=== PATIENT | male | born 1950 | race Caucasian/White ===

== ENCOUNTER → 2019-01-30 | Outpatient (CLI) | payer OTHER ==
[~2019-01-30] VITALS: Ht 180.3 cm; Wt 113.4 kg
[~2019-01-30] MED LIST: AEC81 PO; AMLO5TAB9 PO; ATOR10 PO; CLOP75TA14 PO; ENAL20TA PO; EZET10TA13 PO; METO25TA6 PO; NITR0.4T SL; PANT40TA25 PO; RANO500T2 PO; REGADENOSON 0.4 MG/5 ML PF SYG IVP SCH
== END | disposition home or self-care (01) ==
LOC: SHCH 08:31
PROVIDERS: ATTEND Internal Medicine Cardiovascular Disease
DX: I25.119 Atherosclerotic heart disease of native coronary artery with unspecified angina pectoris (principal)
CPT/HCPCS: 78452; 93017; 96374; A9500 ×2; J2785

== ENCOUNTER 2019-02-28 08:21 | Day surgery (SDC) | payer OTHER ==
[2019-02-26 09:36] VITALS: BP 124/83
[2019-02-26 09:42] LABS: BASOPHILS % (AUTO) 1.4 % (0.0-5.0); EOSINOPHILS % (AUTO) 5.8 % (0.0-8.0); HEMATOCRIT 38.6 % (42-54); LYMPHOCYTES % (AUTO) 22.1 % (21.0-51.0); MEAN CORPUSCULAR HEMOGLOBIN 26.9 pg (27.0-33.0); MEAN CORPUSCULAR HGB CONC 31.1 g/dL (32.0-36.0); MEAN CORPUSCULAR VOLUME 86.5 fL (79-99); MONOCYTES % (AUTO) 11.2 % (3.0-13.0); PLATELET COUNT (AUTO) 312 K/uL (130-400); RED BLOOD CELL COUNT(AUTO) 4.46 MIL/uL (4.50-6.20); RED CELL DISTRIBUTION WIDTH 15.9 % (11.0-15.5); WHITE BLOOD COUNT (AUTO) 6.5 K/uL (4.8-10.8)
[2019-02-26 09:51] LABS: CREATININE 0.8 mg/dL (0.5-1.5); POTASSIUM 4.5 mmol/L (3.5-5.1)
[2019-02-26 09:55] LABS: INR 1.05 (0.85-1.15); PARTIAL THROMBOPLASTIN TIME 27.9 SEC (26.3-35.5)
[2019-02-26 10:35] LABS: APPEARANCE,URINE Clear (CLEAR); BILIRUBIN,URINE Negative (NEGATIVE); COLOR,URINE Yellow (YELLOW); GLUCOSE, URINE (UA) Negative (NEGATIVE); KETONES,URINE Negative (NEGATIVE); LEUKOCYTE ESTERASE ,URINE Negative (NEGATIVE); NITRATE,URINE Negative (NEGATIVE); OCCULT BLOOD,URINE Negative (NEGATIVE); PROTEIN,URINE Negative (NEGATIVE)
[2019-02-28] VITALS (9 sets, daily range): BP systolic 116–144; BP diastolic 69–98
[~2019-02-28] VITALS: Ht 179.1 cm; Wt 111.1 kg
[~2019-02-28 08:21] MED LIST changes: +CETI10TA57 PO; +CITA-107 PO; -CLOP75TA14 PO; -EZET10TA13 PO; +FLUT16H NASAL; +ISOS30TA6 PO; -RANO500T2 PO; -REGADENOSON 0.4 MG/5 ML PF SYG IVP SCH; +TICA90TA PO; +TRAZ-185 PO
[2019-02-28] MEDS ORDERED: SODIUM CHLORIDE 0.9% 1000ML 1,000 ML IV ONE (09:02)
[2019-02-28] MEDS ORDERED: NITROGLYCERIN 5 MG/ML 10 ML VIAL IV ONE (14:42)
[2019-02-28] MEDS ORDERED: IOHEXOL 350 MG/ML 100ML INFUS..BTL IV ONE (14:42)
[2019-02-28] MEDS ORDERED: HEPARIN SODIUM 1000UNIT/ML 10ML VIAL ONE (14:42)
[2019-02-28] MEDS ORDERED: IOHEXOL-350 50ML VIAL IV ONE (14:43)
[2019-02-28] MEDS ORDERED: FENTANYL CITRATE PF 50 MCG/1 ML 2ML VIAL ONE (14:43)
[2019-02-28] MEDS ORDERED: MIDAZOLAM HCL 1 MG/ML 2ML VIAL ONE (14:43)
[2019-02-28] MEDS ORDERED: LIDOCAINE HCL 2% 20ML ONE (14:43)
--- NOTE | 2019-02-28 14:45 | NUR ---
procedure pt taken to laboratory supervisor for scheduled procedure. family at bedside
[2019-02-28] MEDS ORDERED: NICARDIPINE HCL 25 MG/10 ML ML IV ONE (15:08)
[2019-02-28] MEDS ORDERED: HYDRALAZINE HCL 20 MG/ML VIAL ONE (17:00)
[2019-02-28] MEDS ORDERED: NITROGLYCERIN 4.1 GM SPRAY TL ONE (17:28)
[2019-02-28] MEDS ORDERED: ONDANSETRON HCL 4 MG/2 ML VIAL ONE (18:06)
[2019-02-28] MEDS ORDERED: ONDANSETRON HCL 4 MG/2 ML VIAL IVP SCH (18:15)
[2019-02-28] MEDS ORDERED: ACETAMINOPHEN 325 MG TAB ONE (18:38)
[2019-02-28] MEDS ORDERED: ALBUTEROL SULFATE 0.083% 2.5 MG/3 ML INH IH ONE ×2 (19:33→19:45)
--- NOTE | 2019-02-28 21:30 | NUR ---
TR BAND TOTAL OF 1ML AIR REMOVED AIR AT : 1903 2ML 1918 2ML 1922 2ML 1937 2ML 1952 2ML TR BAND REMOVED 1999 , NO HEMATOMA OR ACTIVE BLEEDING TO RIGHT WRIST CATHETER SITE. PT STABLE, NO C/O PAIN TO SITE, NO DISTRESS. POST CARE INSTRUCTIONS GIVEN TO PT AND , BOTH VERBALIZED UNDERSTANDING, PT IV D/C, PT DRESSED WITH ASSISTANCE . PT TAKEN OUT IN WHEELCHAIR TO CAR, DRIVEN HOME BY SPOUSE.
== END 2019-02-28 20:35 | disposition home or self-care (01) ==
LOC: DAH 08:21
PROVIDERS: ATTEND Internal Medicine Cardiovascular Disease
DX: I25.118 Atherosclerotic heart disease of native coronary artery with other forms of angina pectoris (principal); I10 Essential (primary) hypertension; E78.00 Pure hypercholesterolemia, unspecified; Z72.89 Other problems related to lifestyle; Z79.899 Other long term (current) drug therapy; Z98.890 Other specified postprocedural states; Z87.891 Personal history of nicotine dependence; Z82.49 Family history of ischemic heart disease and other diseases of the circulatory system; Z85.828 Personal history of other malignant neoplasm of skin; Z79.01 Long term (current) use of anticoagulants
CPT/HCPCS: 36415 ×2; 71045; 80048; 81003; 85025; 85347; 85610; 85730; 93005; 93458; 94640; A4215; A4216; A4222; A4223 ×3; A4606; A4649; A4663; C1725; C1769 ×3; C1876; C1887; C1894 ×3; C9600; J0360; J1644 ×2; J2250; J2405; J3010; J3490 ×3; J7030; Q9965 ×2; Q9967 ×2; 99156; 99157

== ENCOUNTER → 2019-07-02 | Outpatient (CLI) | payer OTHER ==
[~2019-07-02] MED LIST changes: +REGADENOSON 0.4 MG/5 ML PF SYG IVP SCH
== END | disposition home or self-care (01) ==
LOC: SHCH 08:29
PROVIDERS: ATTEND Internal Medicine Cardiovascular Disease
DX: I21.19 ST elevation (STEMI) myocardial infarction involving other coronary artery of inferior wall (principal); R07.9 Chest pain, unspecified; I25.119 Atherosclerotic heart disease of native coronary artery with unspecified angina pectoris
CPT/HCPCS: 78452; 93017; 96374; A9500 ×2; J2785

== ENCOUNTER 2020-05-14 08:19 | Emergency (ER) | payer MEDICARE, OTHER ==
[~2020-05-14 08:19] MED LIST changes: +AMLO-257 PO; -AMLO5TAB9 PO; -ENAL20TA PO; +ENAL20TA18 PO; -ISOS30TA6 PO; +ISOS30TA92 PO; -PANT40TA25 PO; +PANT40TA54 PO; -REGADENOSON 0.4 MG/5 ML PF SYG IVP SCH
[2020-05-14] MEDS ORDERED: ASPIRIN 325 MG TABLET ONE (08:29)
[2020-05-14 08:30] LABS: BASOPHILS % (AUTO) 1.2 % (0.0-5.0); EOSINOPHILS % (AUTO) 5.3 % (0.0-8.0); HEMATOCRIT 40.6 % (42-54); MEAN CORPUSCULAR HEMOGLOBIN 27.3 pg (27.0-33.0); MEAN CORPUSCULAR HGB CONC 31.5 g/dL (32.0-36.0); MEAN CORPUSCULAR VOLUME 86.6 fL (79-99); MONOCYTES % (AUTO) 10.5 % (3.0-13.0); NEUTROPHILS % (AUTO) 56.2 % (40.0-77.0); PLATELET COUNT (AUTO) 267 K/uL (130-400); RED BLOOD CELL COUNT(AUTO) 4.69 MIL/uL (4.50-6.20); RED CELL DISTRIBUTION WIDTH 16.1 % (11.0-15.5); WHITE BLOOD COUNT (AUTO) 7.7 K/uL (4.8-10.8)
[2020-05-14 08:40] LABS: CREATININE 0.8 mg/dL (0.5-1.5); INR 1.07 (0.85-1.15); POTASSIUM 4.4 mmol/L (3.5-5.1); PROTHROMBIN TIME 11.6 SEC (9.6-11.6)
[2020-05-14 08:41] LABS: PARTIAL THROMBOPLASTIN TIME 26.3 SEC (26.3-35.5)
[2020-05-14 08:44] LABS: ALBUMIN 3.8 g/dL (3.5-5.0); BILIRUBIN,TOTAL 0.5 mg/dL (0.2-1.0); TOTAL PROTEIN, SERUM 7.6 g/dL (6.0-8.3)
[2020-05-14 08:50] LABS: B-TYPE NATRIURETIC PEPTIDE 68 pg/mL (0-100)
[2020-05-14] MEDS ORDERED: METOPROLOL TARTRATE 1 MG/ML 5ML VIAL IV ONE (08:55)
== END 2020-05-14 12:33 | disposition home or self-care (01) ==
LOC: EDH 08:19
DX: R07.89 Other chest pain (principal); R00.0 Tachycardia, unspecified; I10 Essential (primary) hypertension; E78.5 Hyperlipidemia, unspecified; I25.2 Old myocardial infarction
CPT/HCPCS: 36415; 71045; 80053; 82550; 83880; 84484 ×2; 85025; 85610; 85730; 93005 ×2; 96374; 99285; J3490

== ENCOUNTER 2020-07-24 08:05 | Day surgery (SDC) | payer OTHER ==
[2020-07-22 15:16] LABS: BASOPHILS % (AUTO) 1.2 % (0.0-5.0); EOSINOPHILS % (AUTO) 4.5 % (0.0-8.0); HEMATOCRIT 38.3 % (42-54); LYMPHOCYTES % (AUTO) 25.6 % (21.0-51.0); MEAN CORPUSCULAR HGB CONC 31.3 g/dL (32.0-36.0); MEAN CORPUSCULAR VOLUME 86.3 fL (79-99); MONOCYTES % (AUTO) 10.9 % (3.0-13.0); NEUTROPHILS % (AUTO) 57.5 % (40.0-77.0); PLATELET COUNT (AUTO) 267 K/uL (130-400); RED BLOOD CELL COUNT(AUTO) 4.44 MIL/uL (4.50-6.20); RED CELL DISTRIBUTION WIDTH 14.4 % (11.0-15.5); WHITE BLOOD COUNT (AUTO) 7.4 K/uL (4.8-10.8)
[2020-07-22 15:26] LABS: POTASSIUM 4.4 mmol/L (3.5-5.1)
[2020-07-22 15:30] LABS: INR 1.11 (0.85-1.15)
[2020-07-24] VITALS (9 sets, daily range): BP systolic 113–139; BP diastolic 78–99
[~2020-07-24] VITALS: Ht 182.9 cm; Wt 117.5 kg
[~2020-07-24 08:05] MED LIST changes: -AEC81 PO; +APIX5TAB PO; -CETI10TA57 PO; -FLUT16H NASAL; -ISOS30TA92 PO; +MULT-1203 PO; -TICA90TA PO; +TRAM50TA4 PO; -TRAZ-185 PO
[2020-07-24] MEDS ORDERED: SODIUM CHLORIDE 0.9% 1000ML 1,000 ML IV ONE (10:09)
[2020-07-24] MEDS ORDERED: MIDAZOLAM HCL 1 MG/ML 2ML VIAL ONE ×3 (14:45→15:33)
[2020-07-24] MEDS ORDERED: HEPARIN SODIUM 1000UNIT/ML 10ML VIAL ONE (14:45)
[2020-07-24] MEDS ORDERED: MEPERIDINE-PF 25 MG/ML SYG ONE ×3 (14:45→15:33)
[2020-07-24] MEDS ORDERED: LIDOCAINE HCL 400MG/20ML VIAL ONE (14:45)
== END 2020-07-24 20:00 | disposition home or self-care (01) ==
LOC: DAH 08:05
PROVIDERS: ATTEND Internal Medicine Cardiovascular Disease
DX: I48.3 Typical atrial flutter (principal); I25.10 Atherosclerotic heart disease of native coronary artery without angina pectoris; I45.10 Unspecified right bundle-branch block; F17.200 Nicotine dependence, unspecified, uncomplicated; I50.22 Chronic systolic (congestive) heart failure; Z79.01 Long term (current) use of anticoagulants; Z79.899 Other long term (current) drug therapy; Z98.890 Other specified postprocedural states; Z95.5 Presence of coronary angioplasty implant and graft; Z83.42 Family history of familial hypercholesterolemia
CPT/HCPCS: 36415; 80048; 85025; 85610; 85730; 93005; 93613; 93621; 93653; A4215; A4221; A4222; A4223 ×3; A4606; A4649 ×2; A4663; C1730; C1732; C1894 ×2; J1644 ×2; J2175 ×3; J2250 ×3; J3490; J7030; 99156; 99157

== ENCOUNTER 2021-11-27 07:04 | Day surgery (SDC) | payer OTHER ==
[2021-11-23 16:30] LABS: EOSINOPHILS % (AUTO) 4.8 % (0.0-8.0); HEMATOCRIT 44.7 % (42-54); LYMPHOCYTES % (AUTO) 30.5 % (21.0-51.0); MEAN CORPUSCULAR HEMOGLOBIN 31.4 pg (27.0-33.0); MEAN CORPUSCULAR HGB CONC 33.6 g/dL (32.0-36.0); MEAN CORPUSCULAR VOLUME 93.7 fL (79-99); MONOCYTES % (AUTO) 9.7 % (3.0-13.0); NEUTROPHILS % (AUTO) 53.7 % (40.0-77.0); PLATELET COUNT (AUTO) 203 K/uL (130-400); RED BLOOD CELL COUNT(AUTO) 4.77 MIL/uL (4.50-6.20); WHITE BLOOD COUNT (AUTO) 7.1 K/uL (4.8-10.8)
[2021-11-23 16:41] LABS: CREATININE 0.9 mg/dL (0.5-1.5); POTASSIUM 4.2 mmol/L (3.5-5.1)
[2021-11-23 16:45] LABS: PROTHROMBIN TIME 10.9 SEC (9.6-11.6)
[2021-11-23 16:46] LABS: PARTIAL THROMBOPLASTIN TIME 29.2 SEC (26.3-35.5)
[2021-11-23 16:52] LABS: B-TYPE NATRIURETIC PEPTIDE 53 pg/mL (0-100)
[2021-11-23 17:05] LABS: APPEARANCE,URINE CLEAR (CLEAR); BILIRUBIN,URINE NEGATIVE (NEGATIVE); COLOR,URINE LIGHT-YELLOW (YELLOW); GLUCOSE, URINE (UA) NEGATIVE (NEGATIVE); KETONES,URINE NEGATIVE (NEGATIVE); LEUKOCYTE ESTERASE ,URINE NEGATIVE Leu/uL (NEGATIVE); NITRATE,URINE NEGATIVE (NEGATIVE); OCCULT BLOOD,URINE NEGATIVE (NEGATIVE); PH,URINE 6.5 (5.0-8.0); PROTEIN,URINE NEGATIVE (NEGATIVE); UROBILINOGEN,URINE 0.2 mg/dL (0.2-1.0)
[2021-11-26 09:13] VITALS: BP 164/98
[~2021-11-27] VITALS: Ht 180.3 cm; Wt 120.2 kg
[2021-11-27] VITALS (9 sets, daily range): BP systolic 108–176; BP diastolic 64–103
[~2021-11-27 07:04] MED LIST changes: +AEC81 PO; -APIX5TAB PO; -ENAL20TA18 PO; +LEVO5TAB13 PO; +RANO500T6 PO; -TRAM50TA4 PO
[2021-11-27] MEDS ORDERED: 0.9%NACL 1000ML 1,000 ML IV ONE (07:29)
[2021-11-27] MEDS ORDERED: VERAPAMIL HCL 2.5 MG/ML VIAL ONE (09:02)
[2021-11-27] MEDS ORDERED: IOHEXOL 350 MG/ML 100ML INFUS..BTL IV ONE ×2 (09:02→10:13)
[2021-11-27] MEDS ORDERED: HEPARIN 10,000 UNIT/10ML (1,000 UNIT/ML) VIAL ONE (09:02)
[2021-11-27] MEDS ORDERED: NITROGLYCERIN 50MG VIAL ONE (09:02)
[2021-11-27] MEDS ORDERED: IOHEXOL-350 50ML VIAL IV ONE (09:03)
[2021-11-27] MEDS ORDERED: MIDAZOLAM HCL 1 MG/ML 2ML VIAL ONE (09:03)
[2021-11-27] MEDS ORDERED: FENTANYL CITRATE PF 50 MCG/1 ML 2ML VIAL ONE (09:03)
[2021-11-27] MEDS ORDERED: LIDOCAINE HCL MDV 0.5% 50ML VIAL IJ ONE (09:08)
[2021-11-27] MEDS ORDERED: DEXTROSE 50%-WATER 50 ML DISP.SYRIN IV PRN (11:30)
[2021-11-27] MEDS ORDERED: 0.9%NACL 1000ML 1,000 ML IV SCH (11:30)
[2021-11-27] MEDS ORDERED: GLUCAGON 1MG KIT 1 MG ML IM PRN (11:30)
== END 2021-11-27 14:28 | disposition home or self-care (01) ==
LOC: DAH 07:04
PROVIDERS: ATTEND Internal Medicine
DX: I25.119 Atherosclerotic heart disease of native coronary artery with unspecified angina pectoris (principal); Q25.49 Other congenital malformations of aorta; I10 Essential (primary) hypertension; E78.00 Pure hypercholesterolemia, unspecified; F17.210 Nicotine dependence, cigarettes, uncomplicated; Z79.01 Long term (current) use of anticoagulants; Z79.82 Long term (current) use of aspirin; Z79.899 Other long term (current) drug therapy; Z98.890 Other specified postprocedural states; Z72.89 Other problems related to lifestyle; Z95.5 Presence of coronary angioplasty implant and graft
CPT/HCPCS: 80048; 83880; 85025; 85610; 85730; 81003; 36415; 71045; 93005; 93458; 93571; C1769 ×3; C1887 ×2; C1894; J3010; J7030; J1644 ×2; J2250; J3490 ×3; Q9967 ×2; A4215; A4222; A4221; A4663; A4216; A4606; Q9965; A4223 ×3; 99156; 99157

== ENCOUNTER 2022-04-26 11:34 | Observation (INO) | payer MEDICARE, OTHER ==
[~2022-04-26] VITALS: Ht 182.9 cm; Wt 117.0 kg
[2022-04-26 12:06] LABS: BASOPHILS % (AUTO) 1.1 % (0.0-5.0); EOSINOPHILS % (AUTO) 3.9 % (0.0-8.0); HEMATOCRIT 45.5 % (42-54); LYMPHOCYTES % (AUTO) 21.9 % (21.0-51.0); MEAN CORPUSCULAR HEMOGLOBIN 30.9 pg (27.0-33.0); MEAN CORPUSCULAR HGB CONC 33.2 g/dL (32.0-36.0); MEAN CORPUSCULAR VOLUME 93.2 fL (79-99); MONOCYTES % (AUTO) 11.4 % (3.0-13.0); NEUTROPHILS % (AUTO) 60.9 % (40.0-77.0); PLATELET COUNT (AUTO) 213 K/uL (130-400); RED BLOOD CELL COUNT(AUTO) 4.88 MIL/uL (4.50-6.20); RED CELL DISTRIBUTION WIDTH 15.9 % (11.0-15.5); WHITE BLOOD COUNT (AUTO) 6.5 K/uL (4.8-10.8)
[2022-04-26 12:23] LABS: ALBUMIN 3.8 g/dL (3.5-5.0); CREATININE 0.9 mg/dL (0.5-1.5); POTASSIUM 4.1 mmol/L (3.5-5.1)
[2022-04-26] MEDS ORDERED: PANTOPRAZOLE 40 MG/VIAL IVP STA (12:33)
[2022-04-26] MEDS ORDERED: METO25TA6 PO (13:01)
[2022-04-26] MEDS ORDERED: RIVA2.5T PO (13:01)
[2022-04-26] MEDS ORDERED: LIDOCAINE HCL 2% VISCOUS 15 ML UDCUP PO ONE (14:00)
[2022-04-26] MEDS ORDERED: MAG/ALUM/SIMETH 30 ML UDCUP PO ONE (14:00)
[2022-04-26] MEDS ORDERED: LACTULOSE 20 GM/30 ML UDCUP PO PRN (15:30)
[2022-04-26] MEDS ORDERED: HYDRALAZINE 20MG/ML VIAL IV PRN (15:30)
[2022-04-26] MEDS ORDERED: LABETALOL 20MG SYG IV PRN (15:30)
[2022-04-26] MEDS ORDERED: ONDANSETRON 4MG INJ IVP PRN (15:30)
[2022-04-26] MEDS ORDERED: INSULIN HUMULIN R 100 UNIT/ML 3ML SQ SCH (16:30)
[2022-04-26 17:54] VITALS: BP 134/74
[2022-04-26] MEDS: ACETAMINOPHEN 325 MG TAB PO PRN (18:30)
[2022-04-26 19:32] VITALS: BP 141/78
[2022-04-26] MEDS: METOPROLOL TARTRATE 25 MG TAB PO SCH (20:08)
[2022-04-26] MEDS: RANOLAZINE 500 MG TAB.SR.12H PO SCH (20:09)
[2022-04-26] MEDS ORDERED: Levocetirizine Dihydrochloride 5 MG PO SCH (21:00)
[2022-04-26] MEDS ORDERED: RIVAROXABAN 2.5 MG TABLET PO SCH (21:00)
[2022-04-26] MEDS ORDERED: SIMVASTATIN 20 MG TABLET PO SCH (21:00)
[2022-04-26 23:48] VITALS: BP 131/79
[2022-04-27 01:47] VITALS: BP 134/93
[2022-04-27 01:59] VITALS: BP 123/77
[2022-04-27] MEDS ORDERED: MORPHINE 4 MG SYG IVP SCH ×2 (02:15→02:30)
[2022-04-27 02:29] LABS: BASOPHILS % (AUTO) 1.1 % (0.0-5.0); EOSINOPHILS % (AUTO) 4.4 % (0.0-8.0); HEMATOCRIT 40.9 % (42-54); LYMPHOCYTES % (AUTO) 29.9 % (21.0-51.0); MEAN CORPUSCULAR HEMOGLOBIN 30.9 pg (27.0-33.0); MEAN CORPUSCULAR HGB CONC 32.8 g/dL (32.0-36.0); MEAN CORPUSCULAR VOLUME 94.5 fL (79-99); PLATELET COUNT (AUTO) 203 K/uL (130-400); RED BLOOD CELL COUNT(AUTO) 4.33 MIL/uL (4.50-6.20); RED CELL DISTRIBUTION WIDTH 15.7 % (11.0-15.5); WHITE BLOOD COUNT (AUTO) 6.4 K/uL (4.8-10.8)
[2022-04-27] MEDS ORDERED: NITROGLYCERIN 0.4 MG SL TAB SL PRN (02:30)
[2022-04-27 03:48] VITALS: BP 119/82
[2022-04-27] MEDS: RANOLAZINE 500 MG TAB.SR.12H PO SCH (07:49)
[2022-04-27] MEDS: METOPROLOL TARTRATE 25 MG TAB PO SCH (07:50)
[2022-04-27 07:54] VITALS: BP 141/91
[2022-04-27] MEDS ORDERED: LIDO 2% VISC 30ML+MAG/AL/SIMETH 30ML+DICYCLOMINE 20MG 10ML PO SCH ×3 (08:00)
[2022-04-27] MEDS ORDERED: PHARMACY COMMUNICATION MISC SCH (08:00)
[2022-04-27] MEDS ORDERED: COMPOUND PO MISCELLANEOUS 1 EACH MISC MISC PRN (08:00)
[2022-04-27] MEDS ORDERED: IOHEXOL 350 MG/ML 100ML INFUS..BTL IV ONE (08:06)
[2022-04-27 08:12] LABS: ABG HCO3 29.1 mmol/L (21.0-28.0); ABG OXYGEN SATURATION 95.6 % (95.0-99.0); ABG PCO2 45 mmHg (35-48)
[2022-04-27 08:17] LABS: CREATININE 0.9 mg/dL (0.5-1.5); MAGNESIUM 1.9 mg/dL (1.80-2.40); PHOSPHORUS 3.7 mg/dL (2.5-4.9)
[2022-04-27] MEDS ORDERED: REGADENOSON 0.4 MG/5 ML PF SYG IVP SCH (08:30)
[2022-04-27] MEDS ORDERED: ASPIRIN 81 MG EC TAB PO SCH (09:00)
[2022-04-27] MEDS ORDERED: 0.9%NACL 1000ML 1,000 ML IV SCH (09:00)
[2022-04-27] MEDS ORDERED: ASPIRIN 81MG CHEW TAB PO SCH (09:00)
[2022-04-27] MEDS ORDERED: ISOSORBIDE MONO 30MG SR TAB PO SCH (09:00)
[2022-04-27] MEDS ORDERED: ENOXAPARIN SODIUM 30 MG/0.3 ML SQ SCH (09:00)
[2022-04-27] MEDS ORDERED: CITALOPRAM 20 MG TABLET PO SCH (09:00)
[2022-04-27] MEDS ORDERED: AMLODIPINE 5 MG TAB PO SCH (09:00)
[2022-04-27] MEDS ORDERED: PANTOPRAZOLE 40 MG/VIAL IVP SCH ×2 (09:00)
[2022-04-27] MEDS ORDERED: ENOXAPARIN SODIUM 120 MG/0.8ML SQ SCH (09:30)
[2022-04-27] MEDS ORDERED: LEVOFLOXACIN 500 MG/D5W 100 ML 100 ML IV SCH (09:30)
[2022-04-27] MEDS: ACETAMINOPHEN 325 MG TAB PO PRN (10:42)
[2022-04-27 11:45] VITALS: BP 104/68
[2022-04-27 13:07] LABS: AMPHET/METH SCREEN,URINE NEGATIVE (NEGATIVE); BARBITURATE SCREEN, URINE NEGATIVE (NEGATIVE); BENZODIAZEPINES SCREEN,URINE NEGATIVE (NEGATIVE); CANNABINOID SCREEN,URINE NEGATIVE (NEGATIVE); COCAINE SCREEN,URINE NEGATIVE (NEGATIVE); OPIATE SCREEN,URINE POSITIVE (NEGATIVE); PHENCYCLIDINE SCREEN,URINE NEGATIVE (NEGATIVE)
[2022-04-27 13:42] LABS: APPEARANCE,URINE CLEAR (CLEAR); BILIRUBIN,URINE NEGATIVE (NEGATIVE); COLOR,URINE YELLOW (YELLOW); GLUCOSE, URINE (UA) NEGATIVE (NEGATIVE); KETONES,URINE NEGATIVE (NEGATIVE); LEUKOCYTE ESTERASE ,URINE NEGATIVE Leu/uL (NEGATIVE); NITRATE,URINE NEGATIVE (NEGATIVE); OCCULT BLOOD,URINE NEGATIVE (NEGATIVE); PROTEIN,URINE 20 mg/dL (NEGATIVE); UROBILINOGEN,URINE 0.2 mg/dL (0.2-1.0)
[2022-04-27 13:44] LABS: MUCUS,URINE RARE LPF (None Seen); RBC,URINE 0-1 /HPF (0-1); SQUAMOUS EPITHELIAL CELL,UR RARE /HPF (0-2); WBC,URINE 0-1 /HPF (0-1)
[2022-04-27 16:30] VITALS: BP 115/76
[2022-04-27] MEDS ORDERED: METO5TAB87 PO (18:23)
[2022-04-27] MEDS ORDERED: PANT40TA55 PO (19:00)
[2022-04-27] MEDS ORDERED: LEVO-70 PO (19:00)
== END 2022-04-27 19:26 | disposition home or self-care (01) ==
LOC: EDH 11:34 → EDHIP 15:07 → 2DH 17:51
PROVIDERS: ADMIT Internal Medicine Pulmonary Disease; ATTEND Internal Medicine Pulmonary Disease
DX: I25.110 Atherosclerotic heart disease of native coronary artery with unstable angina pectoris (principal); Z20.822 Contact with and (suspected) exposure to COVID-19; I10 Essential (primary) hypertension; E78.5 Hyperlipidemia, unspecified; M19.90 Unspecified osteoarthritis, unspecified site; E66.9 Obesity, unspecified; I45.2 Bifascicular block; Z68.35 Body mass index [BMI] 35.0-35.9, adult; Z95.5 Presence of coronary angioplasty implant and graft; Z98.84 Bariatric surgery status; Z79.899 Other long term (current) drug therapy
CPT/HCPCS: 96375 ×2; 99285; 82550 ×3; 83735 ×2; 83874 ×3; 84484 ×5; 80053; 83880; 85025 ×2; 82948 ×2; 36415 ×2; 71045; 93005 ×2; 96376; 96372; 96365; 96366; 84100; 80048; 82803; 80305; 87804 ×2; 81003; 81001; 87635; 71270; 93017; 78452; 36600; G0378 ×25; C9113 ×2; J1956; J2270; J1650; J2785; Q9967; A9500 ×2; 96374; J7030

== ENCOUNTER → 2022-06-25 | Outpatient (CLI) | payer OTHER ==
[~2022-06-25] MED LIST changes: +LEVO-70 PO; +METO5TAB87 PO; -MULT-1203 PO; +PANT40TA55 PO; +RIVA2.5T PO
== END | disposition home or self-care (01) ==
LOC: SHCH 13:38
PROVIDERS: ATTEND Internal Medicine Cardiovascular Disease
DX: I70.203 Unspecified atherosclerosis of native arteries of extremities, bilateral legs (principal)
CPT/HCPCS: 93925